=== PATIENT | female | born 1990 | race Caucasian/White ===

== ENCOUNTER 2018-05-15 11:50 | Outpatient (CLI) | payer BC, OTHER ==
[2018-05-15 19:14] LABS: BASOPHILS % (AUTO) 0.4 %; EOSINOPHILS % (AUTO) 0.6 %; HGB - HEMOGLOBIN 14.3 g/dL (12.0-16.0); LYMPHOCYTES # (AUTO) 2.5 10^3/uL (1.5-3.5); LYMPHOCYTES % (AUTO) 33.6 %; MEAN CORPUSCULAR HGB CONC 32.8 g/dL (32.0-36.0); MEAN CORPUSCULAR VOLUME 88.5 fL (81.0-99.0); MEAN PLATELET VOLUME 9.3 fL (7.9-10.8); MONOCYTES # (AUTO) 0.5 10^3/uL (0.0-1.0); MONOCYTES % (AUTO) 6.5 %; NEUTROPHILS # (AUTO) 4.4 10^3/uL (1.5-6.6); NEUTROPHILS % (AUTO) 58.9 %; PLT - PLATELET COUNT 225 10^3/uL (130-450); RED BLOOD COUNT 4.93 10^6/uL (4.20-5.40); RED CELL DISTRIBUTION WIDTH 14.5 % (12.0-15.0); WHITE BLOOD COUNT 7.5 x10^3/uL (4.8-10.8)
[2018-05-15 19:20] LABS: ALBUMIN 3.5 g/dL (3.2-5.5); BILIRUBIN,TOTAL 0.6 mg/dL (0.2-1.0); CALCIUM 9.4 mg/dL (8.5-10.3); CREATININE 0.6 mg/dL (0.4-1.0); TOTAL PROTEIN 7.1 g/dL (6.7-8.2)
== END 2018-05-15 11:51 | disposition home or self-care (01) ==
LOC: LAB.S 11:50
PROVIDERS: ATTEND Nurse Practitioner Family
DX: R63.5 Abnormal weight gain (principal); F41.8 Other specified anxiety disorders
CPT/HCPCS: 36415; 80053; 84443; 85025

== ENCOUNTER 2018-05-29 09:21 | Outpatient (CLI) | payer OTHER ==
[2018-05-29 17:48] LABS: BILIRUBIN,URINE NEGATIVE (NEGATIVE); GLUCOSE, URINE (UA) NEGATIVE (NEGATIVE); KETONES,URINE (UA) NEGATIVE (NEGATIVE); LEUKOCYTE ESTERASE, URINE NEGATIVE (NEGATIVE); NITRITE,URINE NEGATIVE (NEGATIVE); OCCULT BLOOD,URINE MODERATE (NEGATIVE); PH,URINE 6.5 PH (5.0-7.5); PROTEIN,URINE NEGATIVE (NEGATIVE); UROBILINOGEN,URINE 0.2 (NORMAL) E.U./dL (NORMAL)
[2018-05-29 18:23] LABS: BACTERIA,URINE None Seen /HPF (None Seen); CLARITY,URINE CLEAR (CLEAR); SQUAMOUS EPITHELIAL CELL,UR FEW Squamous (<= Few)
[2018-05-30 11:58] LABS: HEPATITIS C ANTIBODY NON-REACTIVE (NON-REACTIVE)
[2018-05-30 13:51] LABS: HIV AG/AB 4TH GEN NON-REACTIVE (NON-REACTIVE)
[2018-05-31 12:15] LABS: HSV 1 IGG TYPE SPECIFIC AB >58.00 index; HSV 2 IGG TYPE SPECIFIC AB <0.90 index
== END 2018-05-29 09:22 | disposition home or self-care (01) ==
LOC: LAB.S 09:21
PROVIDERS: ATTEND Nurse Practitioner Family
DX: R30.0 Dysuria (principal); Z72.51 High risk heterosexual behavior
CPT/HCPCS: 36415; 81001; 81599; 86695; 86696; 86803; 87086; 87389; 87491; 87591

== ENCOUNTER 2018-10-28 02:06 | Outpatient (CLI) | payer OTHER | END 2018-10-28 02:07 | disposition EMS.NT | LOC: EMS 02:06 | PROVIDERS: ATTEND Surgery | DX: Z03.89 Encounter for observation for other suspected diseases and conditions ruled out (principal) ==

== ENCOUNTER 2019-03-25 20:18 | Outpatient (CLI) | payer OTHER | END 2019-03-25 20:19 | disposition EMS.NT | LOC: EMS 20:18 | PROVIDERS: ATTEND Surgery | DX: Z04.1 Encounter for examination and observation following transport accident (principal) ==